=== PATIENT | male | born 1995 | race African-American/Black ===

== ENCOUNTER 2020-03-11 09:40 | Outpatient (REF) | payer SELFPAY | END 2020-03-11 09:41 | disposition home or self-care (01) | LOC: HO.LAB 09:40 | PROVIDERS: Visit Provider Internal Medicine | DX: Z20.828 Contact with and (suspected) exposure to other viral communicable diseases (principal) | CPT/HCPCS: C9803; U0003 ==

== ENCOUNTER 2020-07-10 11:40 | Outpatient (REF) | payer OTHER, SELFPAY ==
[2020-07-10 12:49] LABS: COVID-19 Test Negative (Negative)
== END 2020-07-10 11:41 | disposition home or self-care (01) ==
LOC: HO.LAB 11:40
PROVIDERS: Visit Provider Internal Medicine
DX: Z20.822 Contact with and (suspected) exposure to COVID-19 (principal)
CPT/HCPCS: 36415; 87635; C9803

== ENCOUNTER 2020-11-04 11:44 | Outpatient (REF) | payer OTHER, SELFPAY | END 2020-11-04 11:45 | disposition home or self-care (01) | LOC: HO.LAB 11:44 | PROVIDERS: Visit Provider Internal Medicine | DX: Z20.822 Contact with and (suspected) exposure to COVID-19 (principal) | CPT/HCPCS: C9803; U0003; U0005 ==

== ENCOUNTER 2020-11-13 14:39 | Outpatient (REF) | payer OTHER, SELFPAY ==
[2020-11-13 14:59] LABS: COVID-19 Test Positive (Negative); IDNOW Serial# 08D9AD1C
== END 2020-11-13 14:40 | disposition home or self-care (01) ==
LOC: HO.LAB 14:39
PROVIDERS: Visit Provider Internal Medicine
DX: Z20.822 Contact with and (suspected) exposure to COVID-19 (principal)
CPT/HCPCS: 36415; 87635; C9803

== ENCOUNTER 2021-04-02 09:58 | Outpatient (REF) | payer SELFPAY | END 2021-04-02 09:59 | disposition home or self-care (01) | LOC: HO.LAB 09:58 | PROVIDERS: Visit Provider Internal Medicine | DX: Z13.89 Encounter for screening for other disorder (principal) | CPT/HCPCS: C9803 ==

== ENCOUNTER 2021-09-12 21:08 | Emergency (ER) | payer MEDICAID, SELFPAY ==
--- NOTE | ~2021-09-12 | XR_ITS ---
EXAMINATION: XR SHOULDER, LEFT CLINICAL INFORMATION: Left shoulder pain, injury COMPARISON: None TECHNIQUE: AP external rotation, Grashey, scapular Y, and axillary views of the left shoulder. FINDINGS: Small ossified fragment is seen in the adjacent to the greater tuberosity of the humeral head in the region of the rotator cuff tendons. Cannot exclude a tiny avulsion fracture or calcific tendinitis. Osseous structures otherwise appear intact. Shoulder joint is intact. XR/XR shoulder LT min 2V IMPRESSION: Small ossified fragment off the greater tuberosity humeral head which is in the region of the rotator cuff tendon insertion. Cannot exclude tiny avulsion fracture or calcific tendinitis
[2021-09-12 22:37] VITALS: BP 138/102; RESP 18; TEMP 36.8; O2SAT 99; BMI 27.9
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
== END 2021-09-13 00:25 | disposition home or self-care (01) ==
PROVIDERS: Emergency Provider Emergency Medicine Emergency Medical Services
DX: M75.02 Adhesive capsulitis of left shoulder (principal)
CPT/HCPCS: 73030; 99282; 99284

== ENCOUNTER 2022-08-13 20:17 | Emergency (ER) | payer OTHER, SELFPAY ==
[2022-08-13 20:27] VITALS: BP 134/83; PULSE 81; RESP 18; TEMP 36.8; O2SAT 98; BMI 27.6
--- NOTE | 2022-08-13 20:28 | ED_ITS ---
HPI - Back Pain/Injury General Chief Complaint: Back Pain/Injury Stated Complaint: lower back pain Time Seen by Provider: 08/13/22 23:48 Source: patient and director corporate sales Mode of arrival: ambulatory Limitations: no limitations History of Present Illness HPI Narrative: 27-year-old male came in for evaluation of bilateral arm pain and low back pain. 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 Otherwise no trauma, no fall, no lower extremities radiation of pain, no weakness, no urinary incontinence, no fever, no chills. Related Data Previous Rx's Medication Instructions Recorded ibuprofen 400 mg tablet 400 mg PO Q6H PRN pain #20 tabs 09/12/21 Allergies Allergy/AdvReac Type Severity Reaction Status Date / Time No Known Allergies Allergy Unverified 12/07/19 18:59 [No Known Allergies*] Review of Systems Review of Systems: All other systems are reviewed and are negative Constitutional: Reports as per HPI and Reports no additional constitutional complaints Eyes: Reports as per HPI and Reports no additional eye complaints Reports system reviewed and no additional complaints, except as documented Cardiovascular: Reports as per HPI and Reports no additional cardiovascular complaints Respiratory: Reports as per HPI and Reports no additional respiratory complaints Gastrointestinal: Reports as per HPI and Reports no additional gastrointestinal complaints Genitourinary: Reports no additional female genitourinary complaints Musculoskeletal: Reports no additional musculoskeletal complaints Skin/Breast: Reports system reviewed and no additional complaints, except as docu Psychiatric: Reports no additional psychiatric complaints Endocrine: Reports no additional endocrine complaints Hematologic/Lymphatic: Reports no additional hematologic/lymphatic complaints Allergic/Immunologic: Reports no additional allergic/immunologic complaints Reports system reviewed and no additional complaints, except as documented and Reports Abnormal speech present [facility] Social History Social History Advance Directives: No Advance Directives Information Provided: Yes Physical Exam Vital Signs: Vital Signs: Last Vital Signs Temp 98.2 F 08/13/22 20:27 Pulse 81 08/13/22 20:27 Resp 18 08/13/22 20:27 BP 134/83 08/13/22 20:27 Pulse Ox 98 08/13/22 20:27 O2 Del Method Room Air 08/13/22 20:27 BMI result Body Mass Index 27.6 Vital signs have been reviewed as appeared to be correct. Blood pressure normal. Heart rate normal. Respiration rate normal. Temperature normal. Oxygen saturation normal. Appearance: Alert. Oriented X3. No acute distress. Head: Normal external exam. Normocephalic. Atraumatic. No Rosas signs noted. No raccoon eyes noted Eyes: PERRLA. EOMI. Conjunctiva and sclera normal. Eyelids normal. ENT: TM's Normal. Pharynx normal. Uvula midline. Moist mucous membranes. No trismus noted. No drooling noted. No muffled voice noted. Neck: Normal inspection. Neck supple. FROM. No adenopathy. Thyroid Normal. No meningeal signs. No neck mass noted. CVS: Normal heart rate and rhythm. Heart sound normal. No murmurs noted. Pulses normal throughout. Respiratory: No respiratory distress. Painless inspiration. Breath sounds normal. No wheezes/rales/rhonchi noted. Chest nontender. No accessory muscle usage noted or decreased air movement noted. Abdomen: Soft and nontender. Bowel sounds normal in all 4 quadrants. No distention noted. No organomegaly noted. No visible injury noted. Back: No CVA tenderness. Full range of motion noted. Skin: Skin warm and dry. Normal skin color. Normal skin turgor. No rashes/lesions/lacerations noted. Extremities: No lower extremity edema. Extremities exhibit normal range of motion. Extremities nontender. Neuro: Oriented X 3. Cranial nerve exam: II-XII are grossly intact No motor deficit. No sensory deficit. Reflexes normal. Course Course Course Narrative: This is a rapid medical exam. Deferred additional HPI, ROS, PE to primary provider. 27 yo male with no known medical problems. here with lower back pain with radiation to axilla x 2 days. Patient contributes this to lifting cylinder like objects on that side of his body. VSS Reevaluation(s) Reevaluation #1: Bilateral arm pain and lower back pain due to a heavy lifting. Patient stated that he will be looking for another job. Instructed to rest, using heating pads and NSAIDs. Time: 00:12 Medical Decision Making Differential Diagnosis Differential Diagnoses: The differential diagnosis associated with the presentation includes Muscular pain Discharge Plan Discharge Clinical Impression: Strain of lumbar region Patient Disposition: Home, Self-Care Instructions: Muscle Strain (ED) Prescriptions: No Action ibuprofen 400 mg tablet 400 mg PO Q6H PRN (Reason: pain) Qty: 20 0RF Stand Alone Forms: Work/School Release
[2022-08-14] MEDS: Ibuprofen 600 MG TABLET PO (00:15)
== END 2022-08-14 00:17 | disposition home or self-care (01) ==
PROVIDERS: Emergency Provider Emergency Medicine
DX: M54.50 Low back pain, unspecified (principal)
CPT/HCPCS: 99283